=== PATIENT | female | born 1985 | race Caucasian/White ===

== ENCOUNTER 2021-09-15 15:42 | Emergency (ER) | payer OTHER ==
[~2021-09-15] VITALS: Ht 172.7 cm; Wt 98.0 kg
[2021-09-15] MEDS ORDERED: IBUPROFEN 600600 M1 PO (16:39)
[2021-09-15 16:53] VITALS: BP 140/81
== END 2021-09-15 16:53 | disposition home or self-care (01) ==
LOC: M.ERS 15:42
DX: M79.671 Pain in right foot (principal); M54.9 Dorsalgia, unspecified